=== PATIENT | male | born 1955 | race Caucasian/White ===

== ENCOUNTER 2019-03-27 08:45 | Emergency (ER) | payer BC ==
--- NOTE | 2019-03-27 09:31 | EDM.PDOC ---
ED HPI GENERAL MEDICAL PROBLEM - General Chief Complaint: Lower Extremity Injury/Pain Stated Complaint: LEFT KNEE PAIN Time Seen by Provider: 03/27/19 10:11 - History of Present Illness INITIAL COMMENTS - FREE TEXT/NARRATIVE: HISTORY AND PHYSICAL: History of present illness: Patient 63-year-old white male presents with concern of atraumatic left knee pain he has had a history of DVT in this leg. He denies fever chills nausea vomiting denies history of gout or other complaints. Review of systems: As per history of present illness and below otherwise all systems reviewed and negative. Past medical history: As per history of present illness and as reviewed below otherwise noncontributory. Surgical history: As per history of present illness and as reviewed below otherwise noncontributory. Social history: No reported history of drug or alcohol abuse. Family history: As per history of present illness and as reviewed below otherwise noncontributory. Physical exam: HEENT: Atraumatic, normocephalic, pupils reactive, negative for conjunctival pallor or scleral icterus, mucous membranes moist, throat clear, neck supple, nontender, trachea midline. Lungs: Clear to auscultation, breath sounds equal bilaterally, chest nontender. Heart: S1S2, regular, negative for clicks, rubs, or JVD. Abdomen: Soft, nondistended, nontender. Negative for masses or hepatosplenomegaly. Negative for costovertebral tenderness. Pelvis: Stable nontender. Genitourinary: Deferred. Rectal: Deferred. Extremities: Left knee is without point tenderness crepitation joint is grossly stable is no cords or calf pain CMS neurovascular is unremarkable Neuro: Awake, alert, oriented. Cranial nerves II through XII unremarkable. Cerebellum unremarkable. Motor and sensory unremarkable throughout. Exam nonfocal. Diagnostics: CBC uric acid x-ray left knee venous Doppler left lower extremity Therapeutics: None Impression: #1 atraumatic left knee pain etiology to be determined Definitive disposition and diagnosis as appropriate pending reevaluation and review of above. Left Knee Pain Score (Numeric/FACES): 3 - Related Data Allergies Allergy/AdvReac Type Severity Reaction Status Date / Time IV Contrast Allergy Rash Uncoded 03/27/19 09:00 Home Meds: Home Meds Clopidogrel [Plavix] 1 tab PO DAILY 03/27/19 [History] Lisinopril 1 tab PO DAILY 03/27/19 [History] atorvaSTATin [Lipitor] 1 tab PO DAILY 03/27/19 [History] Past Medical History Cardiovascular History: Reports: High Cholesterol, Hypertension Gastrointestinal History: Reports: Diverticulosis - Past Surgical History GI Surgical History: Reports: Other (See Below) Other GI Surgeries/Procedures: colon resection Social & Family History - Tobacco Use Smoking Status *Q: Never Smoker - Caffeine Use Caffeine Use: Reports: Coffee, Soda - Recreational Drug Use Recreational Drug Use: No Review of Systems - Review of Systems Review Of Systems: ROS reveals no pertinent complaints other than HPI. ED EXAM, GENERAL - Physical Exam Exam: See Below (See dictation) Course - Vital Signs Last Recorded V/S: Last Vital Signs Temp 35.9 C 03/27/19 08:56 Pulse 68 03/27/19 08:56 Resp 18 03/27/19 08:56 BP 156/78 H 03/27/19 08:56 Pulse Ox 98 03/27/19 08:56 - Orders/Labs/Meds Labs: Laboratory Tests 03/27/19 03/27/19 Range/Units 09:00 09:00 WBC 7.99 (4.0-11.0) K/uL RBC 5.01 (4.50-5.90) M/uL Hgb 15.8 (13.0-17.0) g/dL Hct 47.5 (38.0-50.0) % MCV 94.8 (80.0-98.0) fL MCH 31.5 (27.0-32.0) pg MCHC 33.3 (31.0-37.0) g/dL RDW Std Deviation 45.1 (28.0-62.0) fl RDW Coeff of Werner 13 (11.0-15.0) % Plt Count 189 (150-400) K/uL MPV 10.40 (7.40-12.00) fL Neut % (Auto) 65.4 (48.0-80.0) % Lymph % (Auto) 24.5 (16.0-40.0) % [place] % (Auto) 8.1 (0.0-15.0) % Eos % (Auto) 1.6 (0.0-7.0) % Baso % (Auto) 0.4 (0.0-1.5) % Neut # (Auto) 5.2 (1.4-5.7) K/uL Lymph # (Auto) 2.0 (0.6-2.4) K/uL [place] # (Auto) 0.7 (0.0-0.8) K/uL Eos # (Auto) 0.1 (0.0-0.7) K/uL Baso # (Auto) 0.0 (0.0-0.1) K/uL Nucleated RBC % 0.0 /100WBC Nucleated RBCs # 0 K/uL Sodium 141 (136-148) mmol/L Potassium 4.3 (3.5-5.1) mmol/L Chloride 107 (98-107) mmol/L Carbon Dioxide 22.5 (21.0-32.0) mmol/L BUN 25 H (7.0-18.0) mg/dL Creatinine 2.0 H (0.8-1.3) mg/dL Est Cr Clr Drug Dosing 34.43 mL/min Estimated GFR (MDRD) 33.7 ml/min Glucose 160 H (74-106) mg/dL Uric Acid 8.1 H (2.6-7.2) mg/dL Calcium 8.7 (8.5-10.1) mg/dL Total Bilirubin 0.5 (0.2-1.0) mg/dL AST 22 (15-37) IU/L ALT 46 (14-63) IU/L Alkaline Phosphatase 152 H (46-116) U/L Total Protein 7.0 (6.4-8.2) g/dL Albumin 3.7 (3.4-5.0) g/dL Globulin 3.3 (2.6-4.0) g/dL Albumin/Globulin Ratio 1.1 (0.9-1.6) Departure - Departure Time of Disposition: 10:11 Disposition: Home, Self-Care 01 Condition: Good Clinical Impression: Knee pain, Elevated blood uric acid level - Discharge Information Referrals: Sari Brady PA-C [Primary Care Provider] - Forms: ED Department Discharge Additional Instructions: The following information is given to patients seen in the emergency department who are being discharged to home. This information is to outline your options for follow-up care. We provide all patients seen in our emergency department with a follow-up referral. The need for follow-up, as well as the timing and circumstances, are variable depending upon the specifics of your emergency department visit. If you don't have a primary care physician on staff, we will provide you with a referral. We always advise you to contact your personal physician following an emergency department visit to inform them of the circumstance of the visit and for follow-up with them and/or the need for any referrals to a consulting specialist. The emergency department will also refer you to a specialist when appropriate. This referral assures that you have the opportunity for followup care with a specialist. All of these measure are taken in an effort to provide you with optimal care, which includes your followup. Under all circumstances we always encourage you to contact your private physician who remains a resource for coordinating your care. When calling for followup care, please make the office aware that this follow-up is from your recent emergency room visit. If for any reason you are refused follow-up, please contact the [facility] emergency department at and asked to speak to the emergency department charge nurse. [facility] Professional Building [address] [place] [address], [address] [place] [address] Follow-up primary medical doctor/orthopedic surgery: Schedule routine appointment continue current medications return as needed as discussed
--- NOTE | 2019-03-27 09:38 | CR ---
INDICATION: Knee pain. TECHNIQUE: Two views. IMPRESSION: No fracture or malalignment. No joint effusion. Joint spaces appear normally maintained. Dictated by Lewis Mead MD @ Mar 27 2019 9:36AM Signed by Dr. Lewis Mead @ Mar 27 2019 9:37AM
--- NOTE | 2019-03-27 10:08 | US ---
INDICATION: Left lower extremity swelling and swelling TECHNIQUE: Ultrasound venous duplex lower left extremity. Compression venous exam was performed using claudio-scale, color Doppler, and spectral Doppler analysis. COMPARISON: None. FINDINGS: Sonographic imaging demonstrates the left common femoral, deep femoral, superficial femoral, popliteal, posterior tibial and greater saphenous and the contralateral right common femoral veins to be fully compressible with normal color Doppler blood flow. IMPRESSION: Normal left lower extremity venous ultrasound, no sign of deep venous thrombosis. Dictated by Alex Burt MD @ Mar 27 2019 10:04AM Signed by Dr. Alex Burt @ Mar 27 2019 10:06AM
== END 2019-03-27 10:21 | disposition home or self-care (01) ==
LOC: MW.ED 08:45
DX: M25.562 Pain in left knee (principal); E79.0 Hyperuricemia without signs of inflammatory arthritis and tophaceous disease; I10 Essential (primary) hypertension; Z91.041 Radiographic dye allergy status; Z79.899 Other long term (current) drug therapy; Z86.718 Personal history of other venous thrombosis and embolism
CPT/HCPCS: 36415; 73560-26-LT; 73560-LT; 80053; 84550; 85025; 93971-26-LT; 93971-LT; 99284-25